=== PATIENT | male | born 1965 | race Caucasian/White ===

== ENCOUNTER 2016-11-26 11:00 | Emergency (ER) | payer OTHER ==
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
--- NOTE | 2016-11-26 13:43 | ED ORDER SUMMARY ---
..... Patient: GEOVANNI LIU OrderSheet [facility] VisitID: [id number] [place] [address] 51y, M Registration Date/Time: 11/26/2016 ORDER SHEET Weight: 142.8 kg (stated) Allergies: No Known Drug Allergy GENERAL ORDERS: MEDICATION ORDERS: Bactrim DS PO (Tablet 800-160 mg) 1 tab (NOW) (13:43 11/26/2016 Karri LEON) (Cancelled: Patient Left16:32 Tres Bowling.NLaurence) Lidocaine Injection 2 % (soln) (NOW, place at bedside, with syringes & needles) (13:48 11/26/2016 Tres Castillo verbal order read back to Karri LEON) (16:32 Tres R.N.) IV FLUIDS: ORDER SHEET NOTES: [Electronically signed by Piotr Ordaz R.N. (16:33 11/26/2016)] [Electronically signed by Sulema Winkler MD (21:25 12/05/2016)] [Electronically locked/signed by Piotr Ordaz R.N. (16:33 11/26/2016)]
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
--- NOTE | 2016-11-26 13:43 | ED CLINICAL REPORT ---
Clinical Report - Physicians/Mid Levels [facility] [address] [place] [address] 11/26/2016 11:01 Patient: GEOVANNI LIU Time Seen: 11:59. Arrived- By private vehicle. Historian- patient. HISTORY OF PRESENT ILLNESS Chief Complaint: lump on neck. This started chronic, but has been worse for the past several days and is still present. At its maximum, severity described as moderate. When seen in the E.D., severity described as moderate. Modifying factors. Not worsened by anything. Not relieved by anything. No current or associated symptoms. (PT states he has been able to squeeze the cyst before, and get the material out of it. However, he was unsuccessful at it this time, and now it has become red and painful around the area.). Similar symptoms previously: Milder. Recent medical care: ( Pt has an appt with his PCP for next week, to get the cyst removed.). Not recently seen/assessed. REVIEW OF SYSTEMS No fever, sore throat, sinus drainage, nasal congestion or cough. No difficulty breathing, chest pain, abdominal pain, nausea or vomiting. No chills, difficulty with urination, skin rash, back pain or calf pain. No headache, blackouts or double vision. No difficulty with ambulation. All systems otherwise negative, except as recorded above. PAST HISTORY Problems: Hypercholesterolemia. Additional Surgeries: Cholecystectomy. Hernia Repair. Vasectomy. Medications: Ibuprofen Oral, as needed. Tylenol Oral, as needed. Allergies: No Known Drug Allergy. SOCIAL HISTORY Former smoker. No alcohol use or drug use. ADDITIONAL NOTES The nursing notes have been reviewed. PHYSICAL EXAM Vital Signs: 11/26/2016 11:11 BP: 159/79. HR: 75. RR: 16. O2 saturation: 97%. Temp: 97.5 F. Pain level now: 2/10. Have been reviewed. Appearance: Alert. No acute distress. Eyes: Pupils equal, round and reactive to light. Eyes normal inspection. ENT: Nose normal. Neck: Neck supple. (PT has a fluctuant, cyst-like mass on his L neck. Erythema of the overlying skin is noted. No drainage.). Respiratory: No respiratory distress. Back: Normal inspection. Skin: Skin warm and dry. Normal skin turgor. Extremities: Extremities exhibit normal ROM. Neuro: Oriented X 3. No motor deficit. No sensory deficit. LABS, X-RAYS, AND EKG Pulse Oximetry: 11/26/2016 11:11 O2 saturation: 97%. (FIO2 - room air). Interpretation: normal. PROGRESS AND PROCEDURES Incision & Drainage of Abscess: The abscess is located in the neck. The risks of the procedure, benefits and alternatives were explained. Local anesthesia provided using 2% lidocaine no epi. Skin cleansed with Betadine. The abscess was incised with a #11 surgical blade. No pus drained. Cavity was irrigated with saline and packed with gauze. A dressing was applied. ( No purulent material was obtained; however, copious amounts of sebaceous material were expressed from the cavity.). Course of Care: Pt was started on Bactrim for his overlying cellulitis. Patient counseled in person regarding the patient's stable condition, diagnosis and need for follow-up. Concerns were addressed. Old medical records reviewed. Disposition: Discharged. Condition: stable and improved. CLINICAL IMPRESSION Cellulitis of the neck. Sebaceous cyst INSTRUCTIONS Warnings: GENERAL WARNINGS: Return or contact your physician immediately if your condition worsens or changes unexpectedly, if not improving as expected, or if other problems arise. Your Current Medications: CONTINUE TAKING THE FOLLOWING MEDICATIONS: Ibuprofen Oral : prn. Tylenol Oral : prn. Prescription Medications: Septra DS 800 mg / 160 mg: take 1 tablet orally every 12 hours for 7 days. No refill. Substitution is permissible. Follow-up: Follow up with your doctor as scheduled. Understanding of the discharge instructions verbalized by patient. (Electronically signed by Sulema Winkler MD 12/05/2016 21:25)
--- NOTE | 2016-11-26 13:43 | ED ORDER SUMMARY ---
..... Patient: GEOVANNI LIU OrderSheet [facility] VisitID: [id number] [place] [address] 51y, M Registration Date/Time: 11/26/2016 ORDER SHEET Weight: 142.8 kg (stated) Allergies: No Known Drug Allergy GENERAL ORDERS: MEDICATION ORDERS: Bactrim DS PO (Tablet 800-160 mg) 1 tab (NOW) (13:43 11/26/2016 Karri LEON) (Cancelled: Patient Left16:32 Tres Bowling.NLaurence) Lidocaine Injection 2 % (soln) (NOW, place at bedside, with syringes & needles) (13:48 11/26/2016 Tres Castillo verbal order read back to Karri LEON) (16:32 Tres R.N.) IV FLUIDS: ORDER SHEET NOTES: [Electronically signed by Piotr Ordaz R.N. (16:33 11/26/2016)] [Electronically signed by Sulema Winkler MD (21:25 12/05/2016)] [Electronically locked/signed by Piotr Ordaz R.N. (16:33 11/26/2016)]
--- NOTE | 2016-12-05 21:26 | ED MAR SUMMARY ---
..... Medication Administration Record [facility] [address] [place] [address] Patient: GEOVANNI LIU Visit ID: [id number] 51y, M Weight: 142.8 kg Height/Length: 72 in BMI: 42.7 ALLERGIES: No Known Drug Allergy Given 13:30 11/26/2016 Piotr Ordaz R.N. Medication Administered: LIDOCAINE [INJECTION], Dose: 2 % Injectable Injection. Medication Ordered: Lidocaine Injection 2 % (soln) (NOW, place at bedside, with syringes & needles).
--- NOTE | 2016-12-05 21:26 | ED DISCHARGE INSTRUCTIONS ---
Patient: GEOVANNI LIU General Instructions [facility] VisitID: [id number] [place] [address] 51y, M Registration Date/Time: 11/26/2016 Cellulitis of the neck. Sebaceous cyst INSTRUCTIONS Warnings: GENERAL WARNINGS: Return or contact your physician immediately if your condition worsens or changes unexpectedly, if not improving as expected, or if other problems arise. Your Current Medications: CONTINUE TAKING THE FOLLOWING MEDICATIONS: Ibuprofen Oral : prn. Tylenol Oral : prn. Prescription Medications: Septra DS 800 mg / 160 mg: take 1 tablet orally every 12 hours for 7 days. No refill. Substitution is permissible. Follow-up: Follow up with your doctor as scheduled. Understanding of the discharge instructions verbalized by patient. ADDITIONAL INFORMATION Sebaceous Cyst, Infected [Incision & Drainage] A Sebaceous Cyst occurs when the opening of an oil gland in the skin becomes blocked. The gland swells with skin oil and skin cells. As it gets bigger, it appears as a small painless lump under the skin. Your cyst has become infected. Because there was a lot of pus inside the cyst, the cyst had to be opened and drained. A gauze packing may have been inserted in the cyst cavity. This will need to be removed as described below. Once the pus is drained, antibiotics are not required unless the infection is spreading into the skin around the wound (known as cellulitis). Healing of the wound will take about one to two weeks depending on the size of the abscess. Home Care: The wound may drain for the first two days. Cover the opening with a clean dry bandage. If the dressing becomes soaked with blood or pus, change it. If a gauze packing was placed inside the opening of the cyst, you may be advised to remove it yourself. You may do this in the shower. Once the packing is removed, you should wash the area carefully in the shower once a day, until the skin opening has closed. This could take up to five days depending on the size of the cyst. It is good to direct the shower spray directly into the opening if this is not too painful. If you were prescribed antibiotics, take them as directed until they are all gone. You may use acetaminophen (Tylenol) or ibuprofen (Motrin, Advil) to control pain, unless another medicine was prescribed. [ NOTE : If you have chronic liver or kidney disease or ever had a stomach ulcer or GI bleeding, talk with your doctor before using these medicines.] Prevention: Once this infection has healed, observe the following to reduce the risk of future infections: Keep the opening of the cyst clean by bathing or showering daily. Avoid tight fitting clothing in the area of the cyst. Be alert for signs of infection listed below so that treatment may be started early. Follow Up with your doctor as advised by our staff. If a gauze packing was inserted in your wound, it should be removed in 1-2 days. Check your wound every day for the signs listed below. Get Prompt Medical Attention if any of the following occur: Pus continues to come from the cyst two days after the incision and drainage Increasing redness around the wound. Increasing local pain or swelling Fever of 100.4F (38C) or higher, or as directed by your healthcare provider You have been given the following additional information: Sebaceous Cyst, Infected (I And D) (Electronically signed by Sulema Winkler MD 12/05/2016 21:25)
--- NOTE | 2016-12-05 21:26 | ED MAR SUMMARY ---
..... Medication Administration Record [facility] [address] [place] [address] Patient: GEOVANNI LIU Visit ID: [id number] 51y, M Weight: 142.8 kg Height/Length: 72 in BMI: 42.7 ALLERGIES: No Known Drug Allergy Given 13:30 11/26/2016 Piort Ordaz R.N. Medication Administered: LIDOCAINE [INJECTION], Dose: 2 % Injectable Injection. Medication Ordered: Lidocaine Injection 2 % (soln) (NOW, place at bedside, with syringes & needles).
--- NOTE | 2016-12-05 21:26 | ED MED RECONCILIATION SUMMARY ---
Patient: GEOVANNI LIU Medication Reconciliation Report [facility] VisitID: [id number] [address] [place] [address] 51y, M Registration Date/Time: 11/26/2016 Weight: 142.8 kg Height/Length: 72 in. BMI: 42.7 ALLERGIES: No Known Drug Allergy The patient's Home Medications are listed below: CONTINUE TAKING THE FOLLOWING MEDICATIONS: Ibuprofen Oral Tylenol Oral The source(s) of the original Home Medication information: patient The following Medications were given to the patient in the Emergency Department: Lidocaine [Injection] Injection 2 %, administered: 11/26/2016 1:30:00 PM The following Medications were prescribed to the patient: Septra DS 800 mg / 160 mg: take 1 tablet orally every 12 hours for 7 days. No refill. Substitution is permissible. -- Sulema Winkler MD
--- NOTE | 2016-12-05 21:26 | ED MED RECONCILIATION SUMMARY ---
Patient: GEOVANNI LIU Medication Reconciliation Report [facility] VisitID: [id number] [address] [place] [address] 51y, M Registration Date/Time: 11/26/2016 Weight: 142.8 kg Height/Length: 72 in. BMI: 42.7 ALLERGIES: No Known Drug Allergy The patient's Home Medications are listed below: CONTINUE TAKING THE FOLLOWING MEDICATIONS: Ibuprofen Oral Tylenol Oral The source(s) of the original Home Medication information: patient The following Medications were given to the patient in the Emergency Department: Lidocaine [Injection] Injection 2 %, administered: 11/26/2016 1:30:00 PM The following Medications were prescribed to the patient: Septra DS 800 mg / 160 mg: take 1 tablet orally every 12 hours for 7 days. No refill. Substitution is permissible. -- Sulema Winkler MD
== END 2016-11-26 13:45 | disposition home or self-care (01) ==
LOC: ED SRH 11:00
DX: L03.221 Cellulitis of neck (principal); L72.3 Sebaceous cyst; Z87.891 Personal history of nicotine dependence